=== PATIENT | male | born 1970 | race Caucasian/White ===

== ENCOUNTER 2024-08-29 21:17 | Emergency (ER) | payer OTHER, SELFPAY ==
[2024-08-29 21:26] VITALS: BP 128/80; PULSE 66; RESP 16; TEMP 36.3; O2SAT 98; BMI 27.8
[2024-08-29 21:55] VITALS: BP 128/80; PULSE 66; RESP 16; TEMP 36.3; O2SAT 98
--- NOTE | 2024-08-29 23:37 | ED.WOUNDLAC ---
HPI - Wound/Laceration General Chief Complaint: Wound/Laceration Stated Complaint: R leg injury Time Seen by Provider: 08/29/24 23:08 Source: patient Mode of arrival: ambulatory Limitations: no limitations History of Present Illness ED Provider: Alex YOST HPI narrative: The patient is a 54-year-old male presenting to the ED for evaluation after he reports he was cleaning out a house and throwing items and a dumpster when a saba pot rolled backwards out of the dumpster grazing his right lateral stewart resulting in an approximate 6 cm laceration. The patient reports bleeding was controlled with direct pressure, denies impaired or painful range of motion or distal paresthesias. The patient does not know the date of his last tetanus shot. Related Data Allergies Allergy/AdvReac Type Severity Reaction Status Date / Time No Known Allergies Allergy Verified 08/29/24 21:30 Review of Systems Review of Systems: Yes all other systems are reviewed and are negative PMFSH Social History Social History Smoked in Last 30 Days: No Use of substances other than those prescribed or required for medical reasons: No Advance Directives: No Advance Directives Information Provided: No Do you have a plan to hurt others: No Plan Physical Exam Vital Signs: Vital Signs: Last Vital Signs Temp 97.4 F 08/29/24 21:55 Pulse 66 08/29/24 21:55 Resp 16 08/29/24 21:55 BP 128/80 08/29/24 21:55 Pulse Ox 98 08/29/24 21:55 O2 Del Method Room Air 08/29/24 21:55 BMI result Body Mass Index 27.8 CONSTITUTIONAL: The patient appears non-toxic, well nourished and in no acute distress. Vital signs as documented. HEAD: Atraumatic, normocephalic. EYES: EOMs grossly intact, pupils equal, conjunctiva clear, no exudate. ENT: Nares patent, no discharge. Airway patent, no audible stridor, visible mucosa is pink and moist without noted lesions. NECK: trachea is midline, no obvious masses or gross abnormalities. CHEST: Symmetric movement, normal appearance. LUNGS: Non-labored work of breathing. CARDIAC: No evidence of hypoperfusion. ABDOMEN: Nondistended, no obvious injury. : Deferred. EXTREMITIES: There is an approximate 6 cm linear laceration with clean borders noted to the mid lateral right stewart, hemostasis achieved prior to arrival in the ED. Moves all extremities spontaneously without reported pain. No other obvious injury or deformity noted. NEURO: Alert and oriented x3, CN II-XII appear grossly intact. Cerebellar Functioning grossly intact. Speech clear and appropriate. SKIN: Warm, dry, color appropriate. No rashes or lesions noted. Medications Administered Discontinued Medications Generic Name Dose Route Start Last Admin Trade Name Freq PRN Reason Stop Dose Admin Diphtheria/Tetanus/Acell Pertussis 0.5 ml 08/29/24 23:35 08/29/24 23:49 Diphth,Pertus(Acell),Tet Adult 0.5 Ml Syringe IM 08/29/24 23:36 0.5 ml .ONCE ONE Administration Medical Decision Making Medical Decision Making MDM Narrative: 12:34 AM 08/30/2024 (Beckie YOST): 54-year-old male presenting to the ED with right lower extremity laceration secondary to a heavy pot which broke and rolled out of a dumpster grazing the patient's leg. Wound is clean, no appreciated foreign bodies, wound was repaired without complication, tetanus updated. Patient educated on reasons to return, and follow up/suture removal timeline. Procedures Laceration Laceration 1: Site: lower extremity Side (If applicable): right Size (cm): 6 Description: linear and clean Depth: simple, single layer Local Anesthetic: lidocaine 1% Amount of anesthesia used (mL): 5 Pre-repair: wound explored Skin layer closed with: nylon Size (cm): 4-0 Number of sutures: 11 Technique: simple, interrupted Discharge Plan Discharge Clinical Impression: Laceration Patient Disposition: Home, Self-Care Instructions: Laceration (ED) Additional Instructions: Thank you for choosing [facility] Emergency Department for your care today. Your laceration today appears noncomplicated. The laceration was repaired with nonabsorbable sutures which will need to be removed in 7-10 days. Please return to the emergency department or follow-up with your primary care provider for removal of sutures. Please apply bacitracin and a clean dry dressing to the laceration twice daily for the first 2-3 days. Then please keep the area clean and dry, but uncovered and exposed to the air to allow the laceration to heal. While it is perfectly acceptable to allow water to run over the sutures while showering, please do not swim, or submerge the laceration in standing water until the sutures are removed. You may take alternating (staggered) doses of ibuprofen 600mg and Tylenol 1000mg every 4 hours as needed for any additional pain. If you do not have a primary care physician, please call the [facility] at [phone] to establish a new primary care physician. While waiting to establish your new primary care physician, you can call our [facility] at [phone] for non-emergency needs. Please return to the emergency department if you develop any uncontrollable bleeding, re-opening of your wound, redness advancing >1-2 cm away from your wound, or white milky discharge from your wound. Please also return if you experience any other new or worsening symptoms or concerns. Referrals: Tapan Perea MD [Primary Care Provider, Medical] Clinical Impression: Laceration Print Language: Bhutanese
[2024-08-29] MEDS: Diphth,Pertus(ACell),Tet Adult 0.5 ML SYRINGE IM (23:49)
[2024-08-30] MEDS: Lidocaine HCl 1 % MPF 5 ML VIAL INFILTRATI (00:44)
[2024-08-30 00:56] VITALS: BP 128/80; PULSE 66; RESP 16; TEMP 36.3; O2SAT 98
== END 2024-08-30 00:57 | disposition home or self-care (01) ==
PROVIDERS: Emergency Provider Emergency Medicine; PCP Pediatrics
DX: S81.811A Laceration without foreign body, right lower leg, initial encounter (principal); W20.8XXA Other cause of strike by thrown, projected or falling object, initial encounter; Y93.E9 Activity, other interior property and clothing maintenance; Y92.017 Garden or yard in single-family (private) house as the place of occurrence of the external cause; Y99.9 Unspecified external cause status; Z23 Encounter for immunization
CPT/HCPCS: 12002; 90471; 90715; 99284; J2003